=== PATIENT | male | born 1985 | race American Indian/Alaskan Native ===

== ENCOUNTER 2020-10-28 16:32 | Outpatient (REF) | payer OTHER, SELFPAY ==
[2020-10-28 17:37] LABS: Anion Gap 16 (12-20); Blood Urea Nitrogen 16 mg/dL (9-16); Calcium 8.9 mg/dL (8.4-10.2); Carbon Dioxide 23 mmol/L (22-29); Chloride 105 mmol/L (96-108); Estimated Glomerular Filt Rate > 60; Glucose Random 104 mg/dL (60-115); Potassium 4.4 mmol/l (3.3-5.1); Sodium 140 mmol/L (135-145)
== END 2020-10-28 16:33 | disposition home or self-care (01) ==
LOC: HO.LAB 16:32
PROVIDERS: PCP Internal Medicine; Visit Provider Internal Medicine
DX: R51.9 Headache, unspecified (principal)
CPT/HCPCS: 36415; 80048

== ENCOUNTER → 2020-11-07 10:58 | Outpatient (BNVA) | payer OTHER, SELFPAY | PROVIDERS: PCP Internal Medicine; Visit Provider Internal Medicine | DX: S46.012A Strain of muscle(s) and tendon(s) of the rotator cuff of left shoulder, initial encounter (principal); W01.0XXA Fall on same level from slipping, tripping and stumbling without subsequent striking against object, initial encounter | CPT/HCPCS: 99203 ==

== ENCOUNTER → 2020-11-12 11:38 | Outpatient (BNVA) | payer OTHER, SELFPAY | PROVIDERS: PCP Internal Medicine; Visit Provider Internal Medicine | DX: S46.012A Strain of muscle(s) and tendon(s) of the rotator cuff of left shoulder, initial encounter (principal); S50.01XA Contusion of right elbow, initial encounter; W01.0XXA Fall on same level from slipping, tripping and stumbling without subsequent striking against object, initial encounter; M70.812 Other soft tissue disorders related to use, overuse and pressure, left shoulder | CPT/HCPCS: 73080; 99214 ==

== ENCOUNTER → 2020-11-20 08:36 | Outpatient (BNVA) | payer SELFPAY | PROVIDERS: PCP Internal Medicine | DX: M79.12 Myalgia of auxiliary muscles, head and neck (principal); S16.1XXD Strain of muscle, fascia and tendon at neck level, subsequent encounter; X58.XXXD Exposure to other specified factors, subsequent encounter ==

== ENCOUNTER → 2020-11-22 11:36 | Outpatient (BNVA) | payer OTHER, SELFPAY | PROVIDERS: PCP Internal Medicine; Visit Provider Internal Medicine | DX: S46.002A Unspecified injury of muscle(s) and tendon(s) of the rotator cuff of left shoulder, initial encounter (principal); S50.01XA Contusion of right elbow, initial encounter; X58.XXXA Exposure to other specified factors, initial encounter | CPT/HCPCS: 99214 ==

== ENCOUNTER → 2020-11-29 11:44 | Outpatient (BNVA) | payer OTHER, SELFPAY | PROVIDERS: PCP Internal Medicine; Visit Provider Internal Medicine | DX: M25.812 Other specified joint disorders, left shoulder (principal); S53.401A Unspecified sprain of right elbow, initial encounter; W18.30XA Fall on same level, unspecified, initial encounter | CPT/HCPCS: 99213 ==

== ENCOUNTER 2020-12-30 09:00 | Outpatient (RCR) | payer OTHER, SELFPAY ==
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
== END 2021-01-20 13:46 | disposition other institution (70) ==
LOC: HO.PT 09:00
PROVIDERS: PCP Internal Medicine; Visit Provider Internal Medicine
DX: M70.31 Other bursitis of elbow, right elbow (principal)
CPT/HCPCS: 97014; 97033; 97110; 97140; 97162; 97530

== ENCOUNTER 2021-01-10 10:46 | Outpatient (REF) | payer OTHER, SELFPAY ==
[2021-01-10 11:21] LABS: MANUAL DIFF FLAG NO
[2021-01-10 11:27] LABS: Basophils Percent Auto 0.2 % (0-2); Eosinophils Absolute Auto 0.1 X10*3/uL (0.0-0.4); Hematocrit 47.7 % (42-52); Hemoglobin 15.9 g/dl (14.0-18.0); Imm Gran Abs Auto 0.06 X10*3/uL (0.00-0.03); Imm Gran Pct Auto 0.5 % (0.0-0.4); Lymphocytes Absolute Auto 3.2 X10*3/uL (1.2-4.9); Lymphocytes Percent Auto 28.7 % (20-40); Mean Corpuscular HGB Conc 33.3 g/dl (31.0-36.0); Mean Corpuscular Hemoglobin 29.5 pg (27.0-33.0); Mean Corpuscular Volume 88.5 fL (80-98); Mean Platelet Volume 9.8 fL (9.4-12.4); Monocytes Absolute Auto 0.6 X10*3/uL (0.1-1.2); Monocytes Percent Auto 5.3 % (2-11); Neutrophils Absolute Auto 7.1 X10*3/uL (2.0-8.3); Neutrophils Percent Auto 64.3 % (45-73); Platelet Count 323 X10*3/uL (160-400); Red Blood Count 5.39 X10*6/uL (4.60-5.80); Red Cell Distribution Width 12.9 % (11.0-16.0)
[2021-01-10 11:55] LABS: Alanine Aminotransferase 88 U/L (0-40); Albumin Level 4.4 g/dL (3.5-5.0); Alkaline Phosphatase 97 U/L (39-117); Anion Gap 12 (12-20); Aspartate Amino Transferase 44 U/L (5-37); Bilirubin Total 0.9 mg/dL (0.0-1.0); Blood Urea Nitrogen 15 mg/dL (9-16); Calcium 9.4 mg/dL (8.4-10.2); Carbon Dioxide 27 mmol/L (22-29); Chloride 103 mmol/L (96-108); Estimated Glomerular Filt Rate > 60; Glucose Fasting 89 mg/dL (60-99); Potassium 4.1 mmol/L (3.3-5.1); Sodium 138 mmol/L (135-145); Total Protein 7.7 g/dL (6.5-8.0)
== END 2021-01-10 10:47 | disposition home or self-care (01) ==
LOC: HO.LAB 10:46
PROVIDERS: PCP Internal Medicine; Visit Provider Internal Medicine
DX: Z00.00 Encounter for general adult medical examination without abnormal findings (principal); E11.9 Type 2 diabetes mellitus without complications
CPT/HCPCS: 36415; 80053; 85025

== ENCOUNTER 2021-01-16 07:08 | Outpatient (REF) | payer OTHER, SELFPAY ==
--- NOTE | ~2021-01-16 | CT_ITS ---
EXAMINATION: CT HEAD WITHOUT CONTRAST CLINICAL INFORMATION: Headache. COMPARISON: None TECHNIQUE: Contiguous axial imaging was performed from the skull base to vertex without intravenous administration of contrast. This CT examination was performed using dose optimization techniques as appropriate, variously including the following: *Automated exposure control *Adjustment of mA and/or kV according to patient size (this includes techniques or standardized protocols for targeted exams where dose is matched to indication/reason for exam; i.e. extremities or head) *Use of iterative reconstruction technique DLP: 906 mGy-cm FINDINGS: There is no evidence of acute intracranial hemorrhage or territorial infarction. No abnormal mass effect or midline shift is seen. Paredes to white matter differentiation is well preserved. No extra-axial fluid collections are identified. The ventricles are normal in size. There is no abnormal attenuation within the brain parenchyma. The osseous structures and soft tissues are normal. There is minimal mucoperiosteal thickening right maxillary sinus. The rest of the paranasal sinuses and mastoid air cells are well aerated and clear. CT/CT head/brain wo con IMPRESSION: No acute intracranial process seen. Mild inflammatory changes right maxillary sinus.
== END 2021-01-16 07:09 | disposition home or self-care (01) ==
LOC: HO.CT 07:08
PROVIDERS: PCP Internal Medicine; Visit Provider Internal Medicine
DX: R51.9 Headache, unspecified (principal)
CPT/HCPCS: 70450

== ENCOUNTER 2022-04-13 09:34 | Outpatient (REF) | payer OTHER, SELFPAY ==
--- NOTE | ~2022-04-13 | XR_ITS ---
EXAMINATION: XR LUMBOSACRAL SPINE CLINICAL INFORMATION: Low back pain. COMPARISON: None TECHNIQUE: Three views of the lumbosacral spine. FINDINGS: There is maintained lumbar lordosis. The vertebral heights, alignment and disc heights are normal. There is moderate ventral spondylosis lower dorsal and upper lumbar spine. No visible acute fracture, dislocation or subluxation seen. No bony erosive changes. SI joints are symmetrical and normal. The paravertebral soft tissues are normal. XR/XR lumbar spine 2-3V IMPRESSION: Degenerative moderate ventral spondylosis lower dorsal and upper lumbar spine. Otherwise, unremarkable lumbar spine exam.
[2022-04-13 09:44] LABS: MANUAL DIFF FLAG NO
[2022-04-13 10:40] LABS: Basophils Absolute Auto 0.1 X10*3/uL (0.0-0.2); Basophils Percent Auto 0.4 % (0-2); Eosinophils Absolute Auto 0.1 X10*3/uL (0.0-0.4); Eosinophils Percent Auto 0.9 % (0-4); Hematocrit 48.1 % (42.0-52.0); Hemoglobin 16.4 g/dl (14.0-18.0); Imm Gran Abs Auto 0.08 X10*3/uL (0.00-0.03); Imm Gran Pct Auto 0.7 % (0.0-0.4); Lymphocytes Absolute Auto 3.1 X10*3/uL (1.2-4.9); Lymphocytes Percent Auto 26.2 % (20-40); Mean Corpuscular HGB Conc 34.1 g/dl (31.0-36.0); Mean Corpuscular Hemoglobin 29.7 pg (27.0-33.0); Mean Platelet Volume 9.7 fL (9.4-12.4); Monocytes Absolute Auto 0.6 X10*3/uL (0.1-1.2); Monocytes Percent Auto 4.9 % (2-11); Neutrophils Absolute Auto 7.8 x10*3/uL (2.0-8.3); Neutrophils Percent Auto 66.9 % (45-73); Platelet Count 328 X10*3/uL (160-400); Red Blood Count 5.53 X10*6/uL (4.60-5.80); Red Cell Distribution Width 13.1 % (11.0-16.0); White Blood Count 11.7 X10*3/uL (4.8-10.8)
[2022-04-13 10:58] LABS: Alanine Aminotransferase 52 U/L (0-40); Albumin Level 4.4 g/dL (3.5-5.0); Alkaline Phosphatase 94 U/L (39-117); Anion Gap 13 (12-20); Aspartate Amino Transferase 31 U/L (5-37); Bilirubin Total 0.9 mg/dL (0.0-1.0); Blood Urea Nitrogen 16 mg/dL (9-16); Calcium 9.5 mg/dL (8.4-10.2); Carbon Dioxide 24 mmol/L (22-29); Chloride 103 mmol/L (96-108); Cholesterol 196 mg/dL; Estimated Glomerular Filt Rate > 60; Glucose Fasting 102 mg/dL (60-99); HDL Cholesterol 27 mg/dL; LDL Cholesterol Calculated 131 mg/dl; Potassium 4.2 mmol/L (3.3-5.1); Sodium 136 mmol/L (135-145); Total Protein 7.6 g/dL (6.5-8.0); Triglycerides 191 mg/dL
[2022-04-13 11:25] LABS: Thyroid Stimulating Hormone 1.38 uIU/mL (0.32-4.0)
== END 2022-04-13 09:35 | disposition home or self-care (01) ==
LOC: HO.XRAY 09:34
PROVIDERS: PCP Internal Medicine; Visit Provider Internal Medicine
DX: Z13.0 Encounter for screening for diseases of the blood and blood-forming organs and certain disorders involving the immune mechanism (principal); M54.9 Dorsalgia, unspecified; I10 Essential (primary) hypertension; E78.5 Hyperlipidemia, unspecified; E03.9 Hypothyroidism, unspecified
CPT/HCPCS: 36415; 72100; 80053; 80061; 84443; 85025

== ENCOUNTER 2023-04-14 09:14 | Outpatient (REF) | payer OTHER, MEDICAID, SELFPAY ==
--- NOTE | ~2023-04-14 | XR_ITS ---
EXAMINATION: XR HIP, RIGHT CLINICAL INFORMATION: Pain. COMPARISON: Radiographs dated 04/11/2007. TECHNIQUE: AP and frog-leg lateral views of the right hip. FINDINGS: Bony alignment and mineralization are normal. There is mild narrowing of the superior right acetabular joint space. The right femoral head appears smooth. There is no fracture or dislocation. Some bowing is suspected of the right femoral shaft, which is incompletely included in the [id number]. No focal soft tissue swelling, gas or foreign body is seen. XR/XR hip RT min 2V IMPRESSION: 1. There is mild osteoarthritic change of the right hip. 2. No fracture or dislocation is seen. 3. Bowing is suspected of the right femoral shaft, possibly congenital. This could be further evaluated with dedicated right femoral radiographs.
[2023-04-14 09:33] LABS: MANUAL DIFF FLAG NO
[2023-04-14 10:12] LABS: Basophils Percent Auto 0.3 % (0-2); Eosinophils Absolute Auto 0.1 X10*3/uL (0.0-0.4); Eosinophils Percent Auto 1.3 % (0-4); Hematocrit 45.7 % (42.0-52.0); Hemoglobin 15.2 g/dl (14.0-18.0); Imm Gran Abs Auto 0.06 X10*3/uL (0.00-0.03); Imm Gran Pct Auto 0.6 % (0.0-0.4); Lymphocytes Absolute Auto 2.8 X10*3/uL (1.2-4.9); Lymphocytes Percent Auto 29.6 % (20-40); Mean Corpuscular HGB Conc 33.3 g/dl (31.0-36.0); Mean Corpuscular Hemoglobin 29.2 pg (27.0-33.0); Mean Corpuscular Volume 87.9 fL (80.0-98.0); Mean Platelet Volume 9.7 fL (9.4-12.4); Monocytes Absolute Auto 0.6 X10*3/uL (0.1-1.2); Monocytes Percent Auto 6.6 % (2-11); Neutrophils Absolute Auto 5.8 x10*3/uL (2.0-8.3); Neutrophils Percent Auto 61.6 % (45-73); Platelet Count 328 X10*3/uL (160-400); Red Cell Distribution Width 13.4 % (11.0-16.0); White Blood Count 9.5 X10*3/uL (4.8-10.8)
[2023-04-14 11:34] LABS: Alanine Aminotransferase 60 U/L (0-40); Albumin Level 4.1 g/dL (3.5-5.0); Alkaline Phosphatase 95 U/L (39-117); Anion Gap 15 (12-20); Aspartate Amino Transferase 46 U/L (5-37); Bilirubin Total 0.7 mg/dL (0.0-1.0); Blood Urea Nitrogen 16 mg/dL (9-16); Calcium 9.6 mg/dL (8.4-10.2); Carbon Dioxide 22 mmol/L (22-29); Chloride 106 mmol/L (96-108); Cholesterol 175 mg/dL; Estimated Glomerular Filt Rate > 60; Glucose Fasting 105 mg/dL (60-99); HDL Cholesterol 26 mg/dL; LDL Cholesterol Calculated 126 mg/dl; Potassium 3.9 mmol/L (3.3-5.1); Sodium 139 mmol/L (135-145); Triglycerides 115 mg/dL
== END 2023-04-14 09:15 | disposition home or self-care (01) ==
LOC: HO.LAB 09:14
PROVIDERS: PCP Internal Medicine; Visit Provider Internal Medicine
DX: M25.551 Pain in right hip (principal); N28.9 Disorder of kidney and ureter, unspecified; D64.9 Anemia, unspecified; E78.5 Hyperlipidemia, unspecified
CPT/HCPCS: 36415; 73502; 80053; 80061; 85025

== ENCOUNTER 2023-06-18 08:17 | Outpatient (AMB) | payer OTHER, SELFPAY ==
[2023-06-18 08:27] VITALS: BP 128/78; PULSE 80; O2SAT 98; BMI 47.9
--- NOTE | 2023-06-18 08:27 | A.OFFPC_ITS ---
Vital Signs 06/18/23 08:27 Height 5 ft 8 in Weight 315 lb BMI 47.9 BP 128/78 Blood Pressure Location Lt brachial Position Sitting Pulse 80 Pulse Source Pulse Oximeter Pulse Oximetry (%) 98 Oxygen Delivery Method Room Air Intake Visit Reasons: Fall/Left Leg Injury Allergies No Known Allergies Allergy (Verified 06/18/23 08:28) Medication List - Last Reconciled 06/18/23 by Alen Angelo MD allopurinol 300 mg PO DAILY hydrochlorothiazide 25 mg PO DAILY ibuprofen 600 mg PO TID metoprolol tartrate 50 mg PO BID 90 days selenium sulfide 2.5% 1 appl topical DAILY 7 days Tobacco use date assessed: 04/14/23 Dental Screening Dental Screen Date: 06/18/23 Did you have a dental visit in the last 12 months?: Yes Did you have a dental problem in the last 6 months where you did not have access to dental care?: No Was dental information given to patient?: Patient has dentist HPI Fall/Left Leg Injury HPI Details injured left hamstring 5 days ago PFSH Medical History Hypertension Morbid obesity Surgical History Deficient knowledge of leg surgery History of elbow surgery History of hand surgery Family History Father Gout Diabetes Hypertension Mother Myocardial infarction Diabetes Hypertension CVD (cardiovascular disease) Mental health disorder Brother No problems noted. Sister No problems noted. Daughter No problems noted. Social History Housing: House Alcohol intake: current Alcohol intake frequency: a few times a month Patient Tobacco Use Status: Never used Tobacco e-Cigarette/Vaping Use: Never Used Second Hand Smoke Exposure: No service: No Current occupational status: employed Cognitive needs: No Hearing needs: No Vision needs: No Questionnaire PHQ-9 Over the last 2 weeks, how often have you been bothered by any of the following problems? 1. Little interest or pleasure in doing things: not at all 2. Feeling down, depressed, or hopeless: not at all 3. Trouble falling or staying asleep, or sleeping too much: not at all 4. Feeling tired or having little energy: not at all 5. Poor appetite or overeating: not at all 6. Feeling bad about yourself - or that you are a failure or have let yourself or your family down: not at all 7. Trouble concentrating on things, such as reading the newspaper or watching television: not at all 8. Moving or speaking so slowly that other people could have noticed. Or the opposite - being so fidgety or restless that you have been moving around a lot more than usual: not at all 9. Thoughts that you would be better off or of hurting yourself in some way: not at all Total score: 0 Depression Screening Interpretation: Negative 21634 - PHQ-9 Billing: Yes Source: Developed by Drs. Kristofer Bryant, Shanda Palacio, Antonio Escalante and colleagues, with an educational serafin from [employer]. Thrive Questionnaire Date Thrive assessed: 04/14/23 Currently or been in a relationship where the following occur: no concerns reported AUDIT C Alcohol Use Questionnaire (AUDIT-C) 1. How often do you have a drink containing alcohol?: Never Total Score: 0 Score Reviewed/Action Taken: Yes DEVORAH-7 AMB Questionnaire DEVORAH-7 Date DEVORAH - 7 assessed: 04/14/23 Source: Developed by Drs. Kristofer Bryant, Shanda Palacio, Antonio Escalante and colleagues, with an educational serafin from [employer]. Review of Systems Const Denies chills, Denies headache(s) and Denies weight loss ENT Denies headache(s) Card Denies chest pain, Denies syncope, Denies irregular heart rhythm and Denies dyspnea Resp Denies chest congestion, Denies cough and Denies dyspnea GI Denies abdominal pain, Denies change in stool character, Denies nausea and Denies vomiting Musc Denies deformity and Denies joint swelling Neuro Denies syncope and Denies headache(s) Physical exam (Primary Care) Vital Signs: Last Vital Signs Pulse 80 06/18/23 08:27 BP 128/78 06/18/23 08:27 Pulse Ox 98 06/18/23 08:27 Oxygen Delivery Method Room Air 06/18/23 08:27 BMI result Body Mass Index 47.9 morbid obesity BMI Assessment/Plan discussion: High BMI High, discussed plan: lifestyle, weight reduction, dietary and physical activity Tobacco/Smoking Status: Tobacco use Status Tobacco use date assessed 04/14/23 06/18/23 08:32 Patient Tobacco Use Status Never used Tobacco 06/18/23 08:32 e-Cigarette/Vaping Use Never Used 06/18/23 08:32 PHQ-9: PHQ-9 Score PHQ-9: Total score 0 06/18/23 08:32 Depression Screening Interpretation: Negative Thrive Assessment: Date of Thrive Assessment Date Thrive assessed 04/14/23 06/18/23 08:32 Currently or been in a relationship where the following occur: no concerns reported Const General: cooperative, healthy appearing and no acute distress Orientation/consciousness: oriented to person, oriented to place and oriented to time HENMT Head: Yes normal to inspection, Yes normocephalic and Yes atraumatic Mouth: Normal oral and palatal mucosa present and tongue normal Throat: Yes posterior oropharynx normal and Yes uvula midline Eyes General: appearance normal, both eyes and all related structures Neck Neck: Yes normal visual inspection, Yes full ROM and Yes no lymphadenopathy Thyroid: Thyroid normal Carotids: normal carotid upstroke Chest Chest palpation & inspection: normal inspection of the chest Resp Effort & Inspection: normal respiratory effort and able to speak in complete sentences Auscultation: clear to auscultation bilaterally Cardio Jugular venous distension: no JVD Palpation: normal PMI Rate: regular rate Rhythm: regular rhythm Heart sounds: S1 normal heart sound present and S2 normal heart sound present GI Inspection: Yes normal to inspection Palpation (GI): Soft to palpation and No hepatosplenomegaly present Auscultation: normal bowel sounds General: Yes no CVA tenderness Back/Spine/Pelvis Back: no CVA tenderness Skin General skin exam: no rashes or lesions noted Neuro General: oriented to person, oriented to place and oriented to time Extrem General: Yes normal to inspection and Yes full ROM Assessment and Plan Assessment & Plan (1) Left hamstring injury: Code(s): S76.302A - Unspecified injury of muscle, fascia and tendon of the posterior muscle group at thigh level, left thigh, initial encounter Plan: ice and nsaids Orders: Orders PT Evaluation and Treatment Today M25.551 - Pain in right hip Medications: New ibuprofen 600 mg PO TID 60 tabs 2RF Coding Level of Care Code Est Pt Level 3 (87718) Diagnoses Left hamstring injury S76.302A
== END 2023-06-18 08:43 | disposition home or self-care (01) ==
PROVIDERS: PCP Internal Medicine; Visit Provider Internal Medicine
DX: S76.302A Unspecified injury of muscle, fascia and tendon of the posterior muscle group at thigh level, left thigh, initial encounter (principal)
CPT/HCPCS: 99213

== ENCOUNTER 2023-08-23 10:23 | Outpatient (AMB) | payer OTHER, SELFPAY ==
[2023-08-23 10:29] VITALS: BP 160/98; PULSE 82; O2SAT 98; BMI 48.5
--- NOTE | 2023-08-23 10:29 | A.OFFPC_ITS ---
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 Accompanied by: Self / Same As Patient Allergies No Known Allergies Allergy (Verified 08/23/23 10:30) Medication List - Last Reconciled 08/23/23 by Alen Angelo MD allopurinol 300 mg PO DAILY hydrochlorothiazide 25 mg PO DAILY ibuprofen 600 mg PO TID metoprolol tartrate 50 mg PO BID 90 days selenium sulfide 2.5% 1 appl topical DAILY 7 days Tobacco use date assessed: 04/14/23 Dental Screening Dental Screen Date: 08/23/23 Did you have a dental visit in the last 12 months?: Yes Did you have a dental problem in the last 6 months where you did not have access to dental care?: No Was dental information given to patient?: Patient has dentist HPI 3 Mth f/u ( Bp/ Medication) HPI Details HTN on Rx; BP fine at home PFSH Medical History Morbid obesity Hypertension Surgical History History of hand surgery History of elbow surgery Deficient knowledge of leg surgery Family History Father Gout Diabetes Hypertension Mother Myocardial infarction Diabetes Hypertension CVD (cardiovascular disease) Mental health disorder Brother No problems noted. Sister No problems noted. Daughter No problems noted. Social History Housing: House Alcohol intake: current Alcohol intake frequency: a few times a month Patient Tobacco Use Status: Never used Tobacco e-Cigarette/Vaping Use: Never Used Second Hand Smoke Exposure: No service: No Current occupational status: employed Cognitive needs: No Hearing needs: No Vision needs: No Questionnaire PHQ-9 Over the last 2 weeks, how often have you been bothered by any of the following problems? 1. Little interest or pleasure in doing things: not at all 2. Feeling down, depressed, or hopeless: not at all 3. Trouble falling or staying asleep, or sleeping too much: not at all 4. Feeling tired or having little energy: not at all 5. Poor appetite or overeating: not at all 6. Feeling bad about yourself - or that you are a failure or have let yourself or your family down: not at all 7. Trouble concentrating on things, such as reading the newspaper or watching television: not at all 8. Moving or speaking so slowly that other people could have noticed. Or the opposite - being so fidgety or restless that you have been moving around a lot more than usual: not at all 9. Thoughts that you would be better off or of hurting yourself in some way: not at all Total score: 0 Depression Screening Interpretation: Negative Depression Screening Done: Yes 67116 - PHQ-9 Billing: Yes Source: Developed by Drs. Kristofer Bryant, Shanda Palacio, Antonio Escalante and colleagues, with an educational serafin from [employer]. Thrive Questionnaire Date Thrive assessed: 04/14/23 AUDIT C Alcohol Use Questionnaire (AUDIT-C) 1. How often do you have a drink containing alcohol?: Never Total Score: 0 Score Reviewed/Action Taken: Yes DEVORAH-7 AMB Questionnaire DEVORAH-7 Date DEVORAH - 7 assessed: 04/14/23 Source: Developed by Drs. Kristofer Bryant, Shanda Palacio, Antonio Escalante and colleagues, with an educational serafin from [employer]. Review of Systems Const Denies chills, Denies headache(s) and Denies weight loss ENT Denies headache(s) Card Denies chest pain, Denies syncope, Denies irregular heart rhythm and Denies dyspnea Resp Denies chest congestion, Denies cough and Denies dyspnea GI Denies abdominal pain, Denies change in stool character, Denies nausea and Denies vomiting Musc Denies deformity and Denies joint swelling Neuro Denies syncope and Denies headache(s) Physical exam (Primary Care) Vital Signs: Last Vital Signs Pulse 82 08/23/23 10:29 BP 160/98 H 08/23/23 10:29 Pulse Ox 98 08/23/23 10:29 Oxygen Delivery Method Room Air 08/23/23 10:29 BMI result Body Mass Index 48.5 Tobacco/Smoking Status: Tobacco use Status Tobacco use date assessed 04/14/23 08/23/23 10:30 Patient Tobacco Use Status Never used Tobacco 08/23/23 10:30 e-Cigarette/Vaping Use Never Used 08/23/23 10:30 PHQ-9: PHQ-9 Score PHQ-9: Total score 0 08/23/23 10:53 Depression Screening Interpretation: Negative Thrive Assessment: Date of Thrive Assessment Date Thrive assessed 04/14/23 08/23/23 10:30 Const General: cooperative, comfortable, no acute distress and alert Neck Neck: Yes no lymphadenopathy Thyroid: Thyroid normal Resp Effort & Inspection: normal respiratory effort Auscultation: clear to auscultation bilaterally Percussion: percussion normal Cardio Jugular venous distension: no JVD Palpation: normal PMI Rate: regular rate Rhythm: regular rhythm Heart sounds: S1 normal heart sound present and S2 normal heart sound present GI Inspection: Yes normal to inspection Palpation (GI): No hepatosplenomegaly present Skin General skin exam: no rashes or lesions noted Extrem General: Yes no clubbing, cyanosis or edema Assessment and Plan Assessment & Plan (1) Hypertension: Code(s): I10 - Essential (primary) hypertension Plan: stable; same rx Coding Level of Care Code Est Pt Level 3 (10916) Diagnoses Hypertension I10
== END 2023-08-23 11:03 | disposition home or self-care (01) ==
PROVIDERS: PCP Internal Medicine; Visit Provider Internal Medicine
DX: I10 Essential (primary) hypertension (principal)
CPT/HCPCS: 99213

== ENCOUNTER 2023-11-30 09:58 | Outpatient (AMB) | payer OTHER, SELFPAY ==
[2023-11-30 10:02] VITALS: BP 160/100; PULSE 87; O2SAT 98; BMI 49.6
--- NOTE | 2023-11-30 10:02 | MHC.PC.OV ---
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 Accompanied by: Self / Same As Patient Allergies No Known Allergies Allergy (Verified 11/30/23 10:03) Medication List - Last Reconciled 11/30/23 by Alen Angelo MD allopurinol 300 mg PO DAILY hydrochlorothiazide 25 mg PO DAILY ibuprofen 600 mg PO TID metoprolol tartrate 50 mg PO BID 90 days selenium sulfide 2.5% 1 appl topical DAILY 7 days Tobacco use date assessed: 11/30/23 Dental Screening Dental Screen Date: 11/30/23 Did you have a dental visit in the last 12 months?: Yes Did you have a dental problem in the last 6 months where you did not have access to dental care?: No Was dental information given to patient?: Patient has dentist HPI 3 month f/u HPI Details HTN gout and hip pain; did not take rx today; right hip continues to bother him; OA and a bowed femur noted PFSH Medical History Morbid obesity Hypertension Surgical History History of hand surgery History of elbow surgery Deficient knowledge of leg surgery Family History Father Gout Diabetes Hypertension Mother Myocardial infarction Diabetes Hypertension CVD (cardiovascular disease) Mental health disorder Brother No problems noted. Sister No problems noted. Daughter No problems noted. Social History Housing: House Alcohol intake: current Alcohol intake frequency: a few times a month Patient Tobacco Use Status: Never used Tobacco e-Cigarette/Vaping Use: Never Used Second Hand Smoke Exposure: No service: No Current occupational status: employed Cognitive needs: No Hearing needs: No Vision needs: No Questionnaire Thrive Questionnaire Date Thrive assessed: 04/28/23 I am a: Patient What is your living situation today?: I have a steady place to live Within the past 12 months, did the food you bought not last and you didn't have the money to get more?: Never true Within the past 12 months, did you worry whether your food would run out before you got money to buy more?: Never true Do you have trouble paying for medicines?: No Do you have trouble getting transportation to medical appointments?: No Do you have trouble paying your heating and electricity bill?: No Do you have trouble taking care of your child, family member or friend?: No Do you have trouble with day-to-day activities such as bathing, preparing meals, shopping, managing finances, etc.?: No Are you currently unemployed and looking for a job?: No Are you interested in more education?: No THRIVE Score: 0 AUDIT C Alcohol Use Questionnaire (AUDIT-C) 1. How often do you have a drink containing alcohol?: Never Total Score: 0 Score Reviewed/Action Taken: Yes DEVORAH-7 AMB Questionnaire DEVORAH-7 Date DEVORAH - 7 assessed: 11/30/23 Feeling nervous, anxious, or on edge: 0 = Not at all Not being able to stop or control worryin = Not at all Worrying too much about different things: 0 = Not at all Trouble relaxin = Not at all Being so restless that it is hard to sit still: 0 = Not at all Becoming easily annoyed or irritable: 0 = Not at all Feeling afraid as if something awful might happen: 0 = Not at all Total DEVORAH-7 score (0-4 normal; 5-9 mild; 10-14 moderate; 15-21 severe): 0 Source: Developed by Drs. Kristofer Bryant, Shanda Palacio, Antonio Escalante and colleagues, with an educational serafin from [employer]. Review of Systems Const Denies chills, Denies headache(s) and Denies weight loss ENT Denies headache(s) Card Denies chest pain, Denies syncope, Denies irregular heart rhythm and Denies dyspnea Resp Denies chest congestion, Denies cough and Denies dyspnea GI Denies abdominal pain, Denies change in stool character, Denies nausea and Denies vomiting Musc Denies deformity and Denies joint swelling Neuro Denies syncope and Denies headache(s) Physical exam (Primary Care) Vital Signs: Last Vital Signs Pulse 87 11/30/23 10:02 BP 160/100 H 11/30/23 10:02 Pulse Ox 98 11/30/23 10:02 Oxygen Delivery Method Room Air 11/30/23 10:02 BMI result Body Mass Index 49.6 Tobacco/Smoking Status: Tobacco use Status Tobacco use date assessed 11/30/23 11/30/23 10:04 Patient Tobacco Use Status Never used Tobacco 11/30/23 10:03 e-Cigarette/Vaping Use Never Used 11/30/23 10:03 Thrive Assessment: Date of Thrive Assessment Date Thrive assessed 04/28/23 11/30/23 10:04 Const General: cooperative, comfortable, no acute distress and alert Neck Neck: Yes no lymphadenopathy Thyroid: Thyroid normal Resp Effort & Inspection: normal respiratory effort Auscultation: clear to auscultation bilaterally Percussion: percussion normal Cardio Jugular venous distension: no JVD Palpation: normal PMI Rate: regular rate Rhythm: regular rhythm Heart sounds: S1 normal heart sound present and S2 normal heart sound present GI Inspection: Yes normal to inspection Palpation (GI): No hepatosplenomegaly present Skin General skin exam: no rashes or lesions noted Extrem General: Yes no clubbing, cyanosis or edema Assessment and Plan Assessment & Plan (1) Gout: Code(s): M10.9 - Gout, unspecified Plan: stable (2) Hypertension: Code(s): I10 - Essential (primary) hypertension Plan: stable; same rx; do labs (3) Hip pain: Code(s): M25.559 - Pain in unspecified hip Plan: ortho ref Orders: Orders Uric Acid Today M10.9 - Gout, unspecified Lipid Panel Today E78.5 - Hyperlipidemia, unspecified Complete Blood Count Auto Diff Today D64.9 - Anemia, unspecified Comprehensive [place]. Panel Fast Today N28.9 - Disorder of kidney and ureter, unspecified Referrals Orthopedics Referral M25.559 - Pain in unspecified hip Coding Level of Care Code Est Pt Level 4 (51922) Diagnoses Gout M10.9 Hypertension I10 Hip pain M25.559
== END 2023-11-30 10:18 | disposition home or self-care (01) ==
PROVIDERS: PCP Internal Medicine; Visit Provider Internal Medicine
DX: M10.9 Gout, unspecified (principal); I10 Essential (primary) hypertension; M25.559 Pain in unspecified hip
CPT/HCPCS: 99214

== ENCOUNTER 2023-12-13 09:11 | Outpatient (REF) | payer OTHER, SELFPAY ==
[2023-12-13 09:23] LABS: MANUAL DIFF FLAG NO
[2023-12-13 10:15] LABS: Basophils Percent Auto 0.2 % (0-2); Eosinophils Absolute Auto 0.2 X10*3/uL (0.0-0.4); Eosinophils Percent Auto 1.4 % (0-4); Hematocrit 47.4 % (42.0-52.0); Hemoglobin 16.2 g/dl (14.0-18.0); Imm Gran Abs Auto 0.06 X10*3/uL (0.00-0.03); Imm Gran Pct Auto 0.6 % (0.0-0.4); Lymphocytes Absolute Auto 3.2 X10*3/uL (1.2-4.9); Lymphocytes Percent Auto 29.4 % (20-40); Mean Corpuscular HGB Conc 34.2 g/dl (31.0-36.0); Mean Corpuscular Hemoglobin 29.6 pg (27.0-33.0); Mean Corpuscular Volume 86.7 fL (80.0-98.0); Mean Platelet Volume 9.6 fL (9.4-12.4); Monocytes Absolute Auto 0.6 X10*3/uL (0.1-1.2); Monocytes Percent Auto 5.2 % (2-11); Neutrophils Absolute Auto 6.8 x10*3/uL (2.0-8.3); Neutrophils Percent Auto 63.2 % (45-73); Platelet Count 328 X10*3/uL (160-400); Red Blood Count 5.47 X10*6/uL (4.60-5.80); White Blood Count 10.8 X10*3/uL (4.8-10.8)
[2023-12-13 10:53] LABS: Alanine Aminotransferase 53 U/L (0-40); Albumin Level 4.1 g/dL (3.5-5.0); Alkaline Phosphatase 104 U/L (39-117); Anion Gap 12 (12-20); Aspartate Amino Transferase 33 U/L (5-37); Bilirubin Total 0.6 mg/dL (0.0-1.0); Blood Urea Nitrogen 13 mg/dL (9-16); Calcium 9.4 mg/dL (8.4-10.2); Carbon Dioxide 25 mmol/L (22-29); Chloride 105 mmol/L (96-108); Cholesterol 183 mg/dL (<200); Estimated Glomerular Filt Rate > 60; Glucose Fasting 120 mg/dL (60-99); HDL Cholesterol 26 mg/dL (>40); LDL Cholesterol Calculated 123 mg/dL (<100); Sodium 138 mmol/L (135-145); Total Protein 7.8 g/dL (6.5-8.0); Triglycerides 171 mg/dL (<150); Uric Acid 6.5 mg/dL (3.4-7.0)
== END 2023-12-13 09:12 | disposition home or self-care (01) ==
LOC: HO.LAB 09:11
PROVIDERS: PCP Internal Medicine; Visit Provider Internal Medicine
DX: M10.9 Gout, unspecified (principal); E78.5 Hyperlipidemia, unspecified; D64.9 Anemia, unspecified; N28.9 Disorder of kidney and ureter, unspecified
CPT/HCPCS: 36415; 80053; 80061; 84550; 85025

== ENCOUNTER 2023-12-16 08:37 | Outpatient (REF) | payer OTHER, SELFPAY ==
--- NOTE | ~2023-12-16 | XR_ITS ---
EXAMINATION: XR PELVIS CLINICAL INFORMATION: Pain in unspecified hip. COMPARISON: 04/14/2023. TECHNIQUE: 2 AP views of the pelvis. Visualization limited due to body habitus. FINDINGS: The sacroiliac joints are symmetric. Advanced degenerative changes in the right hip with superior joint space narrowing as well as acetabular and femoral hypertrophic change. Previously questioned possible bowing of the imaged proximal femoral shaft redemonstrated. Dedicated views of the femur could be considered for further evaluation. Mild superior joint space narrowing on single AP view of the left hip. Focal lucency redemonstrated in the superolateral aspect of the left acetabular region. Surgical clips overlie the scrotal region. XR/XR pelvis 1-2V IMPRESSION: 1. Advanced degenerative changes in the right hip. 2. Previously questioned possible bowing of the imaged proximal femoral shaft redemonstrated. Dedicated views of the femur could be considered for further evaluation. 3. Mild degenerative changes in the left hip. 4. Limited visualization due to body habitus. CT scan could be considered for further evaluation if there is clinical concern for fracture or other underlying pathology. This study was presented today December 22, 2023 for interpretation. Prompt priority results supplied at this time to the referring provider as requested by the provider.
== END 2023-12-16 08:38 | disposition home or self-care (01) ==
LOC: HO.HOSX 08:37
PROVIDERS: Visit Provider Orthopaedic Surgery
DX: M16.11 Unilateral primary osteoarthritis, right hip (principal); E66.01 Morbid (severe) obesity due to excess calories
CPT/HCPCS: 72170

== ENCOUNTER 2023-12-16 10:59 | Outpatient (AMB) | payer OTHER, SELFPAY ==
--- NOTE | 2023-12-16 10:59 | A.OFFVIS_ITS ---
Intake Vital Signs 12/16/23 11:09 Height 5 ft 8 in Weight 326 lb BMI 49.6 Intake Visit Reasons: New Pt - Right Hip Pain - [place] [facility] [place] Note: Alfonso is a 38 year old male who presents today as a new patient with complaints of right hip pain. Hx of gout. Patient reports that he has had pain in the right hip for about a year now, no injury. His pain is felt, in the lateral aspect of the hip. He finds that his pain is worse with walking and sleeping. He takes ibuprofen for his pain which only offers temporary relief. Allergies No Known Allergies Allergy (Verified 11/30/23 10:03) HPI New Pt - Right Hip Pain - XR @ [facility] [place] HPI Details Alfonso is a 38 year old man who presents to discuss his right hip pain. He complains of pain primarily with walking or prolonged laying, such as when sleeping. His pain is localized to the lateral aspect of his hip, and has been present for ~1 year now. He denies any injury, and has right hip OA seen on X-rays. He denies any prior treatment, and finds some relief from Ibuprofen. He has a hx of Gout but says this is currently stable. [facility] Medical History Morbid obesity Hypertension Surgical History History of hand surgery History of elbow surgery Deficient knowledge of leg surgery Family History Father Gout Diabetes Hypertension Mother Myocardial infarction Diabetes Hypertension CVD (cardiovascular disease) Mental health disorder Brother No problems noted. Sister No problems noted. Daughter No problems noted. 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 Resp Other: No audible wheezing Effort & Inspection: normal respiratory effort and able to speak in complete sentences Cardio Other: Radial pulse palpable with no rythmic abnormalities Jugular venous distension: no JVD Back/Spine/Pelvis Cervical Spine: normal cervical lordosis Skin General skin exam: turgor normal Rashes: no rashes Neuro General: patient oriented x3 Extrem Other: mild gait antalgia limited IR bilaterally but + impingement on the right. + [facility] Appearance: grossly normal Mental Status: mental status grossly normal Speech and movement: Normal speech and movement present Affect: normal affect Attitude: cooperative Results Reviewed Results Reviewed: I personally reviewed relevant radiographs. 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 Has seen Bariatrics and is considering surgery. I recommend weight loss as he is too young for arthroplasty. (2) Arthritis of right hip: Code(s): M16.11 - Unilateral primary osteoarthritis, right hip Plan: RIght hip OA in a 38 yo M. Weight loss, NSAIDs and PT. Discussed surgery and the current contra-indications are his age. Will see me in one year for repeat radiographs. Plan Prepared for Trey Singh MD by Duncan Lacey, medical support assistant, on 12/16/23 at 11:10 AM, EST. Orders: Orders XR pelvis 1-2V Today M25.559 - Pain in unspecified hip PT Evaluation and Treatment Today E66.01 - Morbid (severe) obesity due to excess calories, M16.11 - Unilateral primary osteoarthritis, right hip Coding Level of Care Code New Pt Level 4 (26418) Diagnoses Morbid obesity E66.01 Arthritis of right hip M16.11
[2023-12-16 11:09] VITALS: BMI 49.6
== END 2023-12-16 11:29 | disposition home or self-care (01) ==
PROVIDERS: PCP Internal Medicine; Visit Provider Orthopaedic Surgery
DX: M16.11 Unilateral primary osteoarthritis, right hip (principal); E66.01 Morbid (severe) obesity due to excess calories
CPT/HCPCS: 99203

== ENCOUNTER → 2024-01-10 14:04 | Outpatient (BNVA) | payer SELFPAY | PROVIDERS: PCP Internal Medicine; Visit Provider Physician Assistant Medical | DX: Z02.79 Encounter for issue of other medical certificate (principal) ==

== ENCOUNTER → 2024-01-19 08:58 | Outpatient (REF) | payer OTHER, SELFPAY | LOC: HO.SL 08:58 | PROVIDERS: PCP Internal Medicine; Visit Provider Internal Medicine | DX: R06.83 Snoring (principal); E66.01 Morbid (severe) obesity due to excess calories | CPT/HCPCS: 95806 ==

== ENCOUNTER → 2024-01-19 09:17 | Outpatient (BNV) | payer OTHER, SELFPAY | PROVIDERS: PCP Internal Medicine; Visit Provider Internal Medicine | DX: R06.83 Snoring (principal) | CPT/HCPCS: 95806 ==

== ENCOUNTER 2024-06-22 10:41 | Outpatient (AMB) | payer OTHER, SELFPAY ==
--- NOTE | 2024-06-22 10:44 | MHC.PC.OV ---
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 Accompanied by: Self / Same As Patient Allergies No Known Allergies Allergy (Verified 06/22/24 10:46) Medication List - Last Reconciled 06/22/24 by Alen Angelo MD allopurinol 300 mg PO DAILY hydrochlorothiazide 25 mg PO DAILY ibuprofen 600 mg PO TID metoprolol tartrate 50 mg PO BID 90 days selenium sulfide 2.5% 1 appl topical DAILY 7 days Tobacco use date assessed: 11/30/23 Dental Screening Dental Screen Date: 11/30/23 HPI BP Follow Up HPI Details HTN on Rx; doing well and compliant [facility] Medical History Morbid obesity Hypertension Surgical History History of hand surgery History of elbow surgery Deficient knowledge of leg surgery Family History Father Gout Diabetes Hypertension Mother Myocardial infarction Diabetes Hypertension CVD (cardiovascular disease) Mental health disorder Brother No problems noted. Sister No problems noted. Daughter No problems noted. 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 1. Little interest or pleasure in doing things: not at all 2. Feeling down, depressed, or hopeless: not at all 3. Trouble falling or staying asleep, or sleeping too much: not at all 4. Feeling tired or having little energy: not at all 5. Poor appetite or overeating: not at all 6. Feeling bad about yourself - or that you are a failure or have let yourself or your family down: not at all 7. Trouble concentrating on things, such as reading the newspaper or watching television: not at all 8. Moving or speaking so slowly that other people could have noticed. Or the opposite - being so fidgety or restless that you have been moving around a lot more than usual: not at all 9. Thoughts that you would be better off or of hurting yourself in some way: not at all Total score: 0 Depression Screening Interpretation: Negative Depression Screening Done: Yes 25528 - PHQ-9 Billing: Yes Source: Developed by Drs. Kristofer Bryant, Shanda Palacio, Antonio Escalante and colleagues, with an educational serafin from [employer]. Thrive Questionnaire Date Thrive assessed: 06/22/24 I am a: Patient What is your living situation today?: I have a steady place to live Within the past 12 months, did the food you bought not last and you didn't have the money to get more?: Never true Within the past 12 months, did you worry whether your food would run out before you got money to buy more?: Never true Do you have trouble paying for medicines?: No Do you have trouble getting transportation to medical appointments?: No Do you have trouble paying your heating and electricity bill?: No Do you have trouble taking care of your child, family member or friend?: No Do you have trouble with day-to-day activities such as bathing, preparing meals, shopping, managing finances, etc.?: No Are you currently unemployed and looking for a job?: No Are you interested in more education?: No THRIVE Score: 0 AUDIT C Alcohol Use Questionnaire (AUDIT-C) 1. How often do you have a drink containing alcohol?: Never Total Score: 0 Score Reviewed/Action Taken: Yes DEVORAH-7 AMB Questionnaire DEVORAH-7 Date DEVORAH - 7 assessed: 11/30/23 Source: Developed by Drs. Kristofer Bryant, Shanda Palacio, Antonio Escalante and colleagues, with an educational serafin from [employer]. Review of Systems Const Denies chills, Denies headache(s) and Denies weight loss ENT Denies headache(s) Card Denies chest pain, Denies syncope, Denies irregular heart rhythm and Denies dyspnea Resp Denies chest congestion, Denies cough and Denies dyspnea GI Denies abdominal pain, Denies change in stool character, Denies nausea and Denies vomiting Musc Denies deformity and Denies joint swelling Neuro Denies syncope and Denies headache(s) Physical exam (Primary Care) Vital Signs: Last Vital Signs Pulse 104 H 06/22/24 10:45 BP 160/98 H 06/22/24 10:45 Pulse Ox 97 06/22/24 10:45 Oxygen Delivery Method Room Air 06/22/24 10:45 BMI result Body Mass Index 48.7 Tobacco/Smoking Status: Tobacco use Status Tobacco use date assessed 11/30/23 06/22/24 10:49 Patient Tobacco Use Status Never used Tobacco 06/22/24 10:49 Tobacco use type Cigarette 06/22/24 10:49 e-Cigarette/Vaping Use Never Used 06/22/24 10:49 PHQ-9: PHQ-9 Score PHQ-9: Total score 0 06/22/24 10:49 Depression Screening Interpretation: Negative Thrive Assessment: Date of Thrive Assessment Date Thrive assessed 06/22/24 06/22/24 10:49 Const General: cooperative, comfortable, no acute distress and alert Neck Neck: Yes no lymphadenopathy Thyroid: Thyroid normal Resp Effort & Inspection: normal respiratory effort Auscultation: clear to auscultation bilaterally Percussion: percussion normal Cardio Jugular venous distension: no JVD Palpation: normal PMI Rate: regular rate Rhythm: regular rhythm Heart sounds: S1 normal heart sound present and S2 normal heart sound present GI Inspection: Yes normal to inspection Palpation (GI): No hepatosplenomegaly present Skin General skin exam: no rashes or lesions noted Extrem General: Yes no clubbing, cyanosis or edema Assessment and Plan Assessment & Plan (1) Hypertension: Code(s): I10 - Essential (primary) hypertension Plan: stable; same rx Coding Level of Care Code Est Pt Level 3 (50551) Diagnoses Hypertension I10
[2024-06-22 10:45] VITALS: BP 160/98; PULSE 104; O2SAT 97; BMI 48.7
== END 2024-06-22 11:07 | disposition home or self-care (01) ==
PROVIDERS: PCP Internal Medicine; Visit Provider Internal Medicine
DX: I10 Essential (primary) hypertension (principal)
CPT/HCPCS: 99213

== ENCOUNTER → 2024-08-11 09:25 | Outpatient (BNVA) | payer SELFPAY | PROVIDERS: PCP Internal Medicine; Visit Provider Physician Assistant | DX: Z02.79 Encounter for issue of other medical certificate (principal) ==

== ENCOUNTER 2024-09-11 10:37 | Outpatient (AMB) | payer OTHER, SELFPAY ==
[2024-09-11 10:41] VITALS: BP 132/88; PULSE 83; O2SAT 98; BMI 49.0
--- NOTE | 2024-09-11 10:41 | A.OFFPC_ITS ---
Vital Signs 09/11/24 10:41 Height 5 ft 8 in Weight 322 lb BMI 49.0 BP 132/88 Blood Pressure Location Lt brachial Position Sitting Pulse 83 Pulse Source Pulse Oximeter Pulse Oximetry (%) 98 Oxygen Delivery Method Room Air Intake Visit Reasons: 3 month BP Follow Up Allergies No Known Allergies Allergy (Verified 09/11/24 10:44) Medication List - Last Reconciled 09/11/24 by Alen Angelo MD allopurinol 300 mg PO DAILY hydrochlorothiazide 25 mg PO DAILY ibuprofen 600 mg PO TID metoprolol tartrate 50 mg PO BID 90 days selenium sulfide 2.5% 1 appl topical DAILY 7 days Tobacco use date assessed: 11/30/23 Dental Screening Dental Screen Date: 11/30/23 HPI 3 month BP Follow Up 2 HPI Details HTN on rx; doing well and compliant [facility] Medical History Morbid obesity Hypertension Surgical History History of hand surgery History of elbow surgery Deficient knowledge of leg surgery Family History Father Gout Diabetes Hypertension Mother Myocardial infarction Diabetes Hypertension CVD (cardiovascular disease) Mental health disorder Brother No problems noted. Sister No problems noted. Daughter No problems noted. 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 1. Little interest or pleasure in doing things: not at all 2. Feeling down, depressed, or hopeless: not at all 3. Trouble falling or staying asleep, or sleeping too much: not at all 4. Feeling tired or having little energy: not at all 5. Poor appetite or overeating: not at all 6. Feeling bad about yourself - or that you are a failure or have let yourself or your family down: not at all 7. Trouble concentrating on things, such as reading the newspaper or watching television: not at all 8. Moving or speaking so slowly that other people could have noticed. Or the opposite - being so fidgety or restless that you have been moving around a lot more than usual: not at all 9. Thoughts that you would be better off or of hurting yourself in some way: not at all Total score: 0 Depression Screening Interpretation: Negative Depression Screening Done: Yes 21685 - PHQ-9 Billing: Yes Source: Developed by Drs. Kristofer Bryant, Shanda Palacio, Antonio Escalante and colleagues, with an educational serafin from [employer]. Thrive Questionnaire Date Thrive assessed: 06/22/24 AUDIT C Alcohol Use Questionnaire (AUDIT-C) 1. How often do you have a drink containing alcohol?: Never Total Score: 0 Score Reviewed/Action Taken: Yes DEVORAH-7 AMB Questionnaire DEVORAH-7 Date DEVORAH - 7 assessed: 11/30/23 Source: Developed by Drs. Kristofer Bryant, Shanda Palacio, Antonio Escalante and colleagues, with an educational serafin from [employer]. Review of Systems Const Denies chills, Denies headache(s) and Denies weight loss ENT Denies headache(s) Card Denies chest pain, Denies syncope, Denies irregular heart rhythm and Denies dyspnea Resp Denies chest congestion, Denies cough and Denies dyspnea GI Denies abdominal pain, Denies change in stool character, Denies nausea and Denies vomiting Musc Denies deformity and Denies joint swelling Neuro Denies syncope and Denies headache(s) Physical exam (Primary Care) Vital Signs: Last Vital Signs Pulse 83 09/11/24 10:41 BP 132/88 09/11/24 10:41 Pulse Ox 98 09/11/24 10:41 Oxygen Delivery Method Room Air 09/11/24 10:41 BMI result Body Mass Index 49.0 Tobacco/Smoking Status: Tobacco use Status Tobacco use date assessed 11/30/23 09/11/24 10:47 Patient Tobacco Use Status Never used Tobacco 09/11/24 10:47 Tobacco use type Cigarette 09/11/24 10:47 e-Cigarette/Vaping Use Never Used 09/11/24 10:47 PHQ-9: PHQ-9 Score PHQ-9: Total score 0 09/11/24 10:47 Depression Screening Interpretation: Negative Thrive Assessment: Date of Thrive Assessment Date Thrive assessed 06/22/24 09/11/24 10:47 Const General: cooperative, comfortable, no acute distress and alert Neck Neck: Yes no lymphadenopathy Thyroid: Thyroid normal Resp Effort & Inspection: normal respiratory effort Auscultation: clear to auscultation bilaterally Percussion: percussion normal Cardio Jugular venous distension: no JVD Palpation: normal PMI Rate: regular rate Rhythm: regular rhythm Heart sounds: S1 normal heart sound present and S2 normal heart sound present GI Inspection: Yes normal to inspection Palpation (GI): No hepatosplenomegaly present Skin General skin exam: no rashes or lesions noted Extrem General: Yes no clubbing, cyanosis or edema Coding Level of Care Code Est Pt Level 3 (62794) Diagnoses Hypertension I10 Additional Codes PHQ-9 - 68234 - PHQ-9 Billing: Yes ([id number]) Assessment & Plan Assessment & Plan (1) Hypertension: Code(s): I10 - Essential (primary) hypertension Category: Medical Plan: stable; same rx Orders: Orders Lipid Panel Today Z13.220 - Encounter for screening for lipoid disorders Complete Blood Count Auto Diff Today Z13.0 - Encounter for screening for diseases of the blood and blood-forming organs and certain disorders involving the immune mechanism Comprehensive [place]. Panel Fast Today Z13.9 - Encounter for screening, unspecified Thyroid Stimulating Hormone Today Z13.29 - Encounter for screening for other suspected endocrine disorder
== END 2024-09-11 11:00 | disposition home or self-care (01) ==
PROVIDERS: PCP Internal Medicine; Visit Provider Internal Medicine
DX: I10 Essential (primary) hypertension (principal)

== ENCOUNTER → 2024-09-11 10:37 | Outpatient (BNVA) | payer OTHER, SELFPAY | PROVIDERS: PCP Internal Medicine; Visit Provider Internal Medicine | DX: I10 Essential (primary) hypertension (principal) | CPT/HCPCS: 96127 ==

== ENCOUNTER 2024-12-11 10:06 | Outpatient (REF) | payer MEDICAID, SELFPAY ==
[2024-12-11 10:20] LABS: MANUAL DIFF FLAG NO
[2024-12-11 10:38] LABS: Basophils Percent Auto 0.2 % (0-2); Eosinophils Absolute Auto 0.2 X10*3/uL (0.0-0.4); Eosinophils Percent Auto 1.9 % (0-4); Hematocrit 47.8 % (42.0-52.0); Hemoglobin 16.2 g/dl (14.0-18.0); Imm Gran Abs Auto 0.04 X10*3/uL (0.00-0.03); Imm Gran Pct Auto 0.4 % (0.0-0.4); Lymphocytes Percent Auto 29.6 % (20-40); Mean Corpuscular HGB Conc 33.9 g/dl (31.0-36.0); Mean Corpuscular Hemoglobin 29.3 pg (27.0-33.0); Mean Corpuscular Volume 86.4 fL (80.0-98.0); Mean Platelet Volume 9.5 fL (9.4-12.4); Monocytes Absolute Auto 0.6 X10*3/uL (0.1-1.2); Monocytes Percent Auto 5.7 % (2-11); Neutrophils Absolute Auto 6.2 x10*3/uL (2.0-8.3); Neutrophils Percent Auto 62.2 % (45-73); Platelet Count 325 X10*3/uL (160-400); Red Blood Count 5.53 X10*6/uL (4.60-5.80); Red Cell Distribution Width 12.8 % (11.0-16.0)
[2024-12-11 11:13] LABS: Alanine Aminotransferase 60 U/L (0-40); Albumin Level 4.1 g/dL (3.5-5.0); Alkaline Phosphatase 102 U/L (39-117); Anion Gap 13 (12-20); Aspartate Amino Transferase 46 U/L (5-37); Bilirubin Total 0.8 mg/dL (0.0-1.0); Blood Urea Nitrogen 14 mg/dL (9-16); Calcium 9.3 mg/dL (8.4-10.2); Carbon Dioxide 22 mmol/L (22-29); Chloride 108 mmol/L (96-108); Cholesterol 178 mg/dL (<200); Estimated Glomerular Filt Rate > 60; Glucose Fasting 102 mg/dL (60-99); HDL Cholesterol 28 mg/dL (>40); LDL Cholesterol Calculated 120 mg/dL (<100); Sodium 139 mmol/L (135-145); Total Protein 8.1 g/dL (6.5-8.0); Triglycerides 150 mg/dL (<150)
[2024-12-11 11:27] LABS: Thyroid Stimulating Hormone 1.48 uIU/mL (0.32-4.0)
== END 2024-12-11 10:07 | disposition home or self-care (01) ==
LOC: HO.LAB 10:06
PROVIDERS: PCP Internal Medicine; Visit Provider Internal Medicine
DX: Z13.0 Encounter for screening for diseases of the blood and blood-forming organs and certain disorders involving the immune mechanism (principal); Z13.220 Encounter for screening for lipoid disorders; Z13.29 Encounter for screening for other suspected endocrine disorder; Z13.9 Encounter for screening, unspecified
CPT/HCPCS: 36415; 80053; 80061; 84443; 85025

== ENCOUNTER 2024-12-12 11:37 | Outpatient (AMB) | payer MEDICAID, SELFPAY ==
--- NOTE | 2024-12-12 11:38 | MHC.PC.OV ---
Vital Signs 12/12/24 11:40 Height 5 ft 8 in Weight 326 lb BMI 49.6 BP 126/78 Blood Pressure Location Lt brachial Position Sitting Pulse 82 Pulse Source Pulse Oximeter Temp 96.9 F Temp Source Temporal Artery Scan Pulse Oximetry (%) 96 Oxygen Delivery Method Room Air Intake Visit Reasons: 3 month f/u Intake Note: Patient is here to follow up on HTN. 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 Required: No Rate Manager: Not Required per policy Accompanied by: Self / Same As Patient Allergies No Known Allergies Allergy (Verified 12/12/24 11:39) Medication List - Last Reconciled 12/12/24 by Alen Angelo MD allopurinol 300 mg PO DAILY hydrochlorothiazide 25 mg PO DAILY ibuprofen 600 mg PO TID metoprolol tartrate 50 mg PO BID 90 days selenium sulfide 2.5% 1 appl topical DAILY 7 days Tobacco use date assessed: 12/12/24 Dental Screening Dental Screen Date: 12/12/24 Did you have a dental visit in the last 12 months?: No Did you have a dental problem in the last 6 months where you did not have access to dental care?: No Was dental information given to patient?: Patient has dentist HPI 3 month f/u HPI Details HTN on Rx; doing well and compliant [facility] Medical History Morbid obesity Hypertension Surgical History History of hand surgery History of elbow surgery Deficient knowledge of leg surgery Family History Father Gout Diabetes Hypertension Mother Myocardial infarction Diabetes Hypertension CVD (cardiovascular disease) Mental health disorder Brother No problems noted. Sister No problems noted. Daughter No problems noted. 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 1. Little interest or pleasure in doing things: not at all 2. Feeling down, depressed, or hopeless: not at all 3. Trouble falling or staying asleep, or sleeping too much: not at all 4. Feeling tired or having little energy: not at all 5. Poor appetite or overeating: not at all 6. Feeling bad about yourself - or that you are a failure or have let yourself or your family down: not at all 7. Trouble concentrating on things, such as reading the newspaper or watching television: not at all 8. Moving or speaking so slowly that other people could have noticed. Or the opposite - being so fidgety or restless that you have been moving around a lot more than usual: not at all 9. Thoughts that you would be better off or of hurting yourself in some way: not at all Total score: 0 Depression Screening Interpretation: Negative Depression Screening Done: Yes Source: Developed by Drs. Kristofer Bryant, Shanda Palacio, Antonio Escalante and colleagues, with an educational serafin from [employer]. Thrive Questionnaire Date Thrive assessed: 12/12/24 I am a: Patient What is your living situation today?: I have a steady place to live Within the past 12 months, did the food you bought not last and you didn't have the money to get more?: Never true Within the past 12 months, did you worry whether your food would run out before you got money to buy more?: Never true Do you have trouble paying for medicines?: No Do you have trouble getting transportation to medical appointments?: No Do you have trouble paying your heating and electricity bill?: No Do you have trouble taking care of your child, family member or friend?: No Do you have trouble with day-to-day activities such as bathing, preparing meals, shopping, managing finances, etc.?: No Are you currently unemployed and looking for a job?: No Are you interested in more education?: No Please select the resources that you would like help with: None Currently or been in a relationship where the following occur: No concerns reported THRIVE Score: 0 AUDIT C Alcohol Use Questionnaire (AUDIT-C) 1. How often do you have a drink containing alcohol?: Never Total Score: 0 DEVORAH-7 AMB Questionnaire DEVORAH-7 Date DEVORAH - 7 assessed: 12/12/24 Feeling nervous, anxious, or on edge: 0 = Not at all Not being able to stop or control worryin = Not at all Worrying too much about different things: 0 = Not at all Trouble relaxin = Not at all Being so restless that it is hard to sit still: 0 = Not at all Becoming easily annoyed or irritable: 0 = Not at all Feeling afraid as if something awful might happen: 0 = Not at all Total DEVORAH-7 score (0-4 normal; 5-9 mild; 10-14 moderate; 15-21 severe): 0 Source: Developed by Drs. Kristofer Bryant, Shanda Palacio, Antonio Escalante and colleagues, with an educational serafin from [employer]. Review of Systems Const Denies chills, Denies headache(s) and Denies weight loss ENT Denies headache(s) Card Denies chest pain, Denies syncope, Denies irregular heart rhythm and Denies dyspnea Resp Denies chest congestion, Denies cough and Denies dyspnea GI Denies abdominal pain, Denies change in stool character, Denies nausea and Denies vomiting Musc Denies deformity and Denies joint swelling Neuro Denies syncope and Denies headache(s) Physical exam (Primary Care) Vital Signs: Last Vital Signs Temp 96.9 F 12/12/24 11:40 Pulse 82 12/12/24 11:40 BP 126/78 12/12/24 11:40 Pulse Ox 96 12/12/24 11:40 Oxygen Delivery Method Room Air 12/12/24 11:40 BMI result Body Mass Index 49.6 Tobacco/Smoking Status: Tobacco use Status Tobacco use date assessed 12/12/24 12/12/24 11:44 Patient Tobacco Use Status Never used Tobacco 12/12/24 11:44 Tobacco use type Cigarette 12/12/24 11:44 e-Cigarette/Vaping Use Never Used 12/12/24 11:44 PHQ-9: PHQ-9 Score PHQ-9: Total score 0 12/12/24 11:44 Depression Screening Interpretation: Negative Thrive Assessment: Date of Thrive Assessment Date Thrive assessed 12/12/24 12/12/24 11:44 Currently or been in a relationship where the following occur: No concerns reported Const General: cooperative, comfortable, no acute distress and alert Neck Neck: Yes no lymphadenopathy Thyroid: Thyroid normal Resp Effort & Inspection: normal respiratory effort Auscultation: clear to auscultation bilaterally Percussion: percussion normal Cardio Jugular venous distension: no JVD Palpation: normal PMI Rate: regular rate Rhythm: regular rhythm Heart sounds: S1 normal heart sound present and S2 normal heart sound present GI Inspection: Yes normal to inspection Palpation (GI): No hepatosplenomegaly present Skin General skin exam: no rashes or lesions noted Extrem General: Yes no clubbing, cyanosis or edema Coding Level of Care Code Est Pt Level 3 (92075) Diagnoses Hypertension I10 Assessment & Plan Assessment & Plan (1) Hypertension: Code(s): I10 - Essential (primary) hypertension Category: Medical Plan: stable; same rx; add Ozempic for weight loss Medications: New semaglutide for 4 weeks 0.25 mg (0.187 mL) subcut QWEEK 1.5 mL 0RF Refilled selenium sulfide 2.5% 1 appl topical DAILY 7 days 120 mL 0RF
[2024-12-12 11:40] VITALS: BP 126/78; PULSE 82; TEMP 36.1; O2SAT 96; BMI 49.6
== END 2024-12-12 11:59 | disposition home or self-care (01) ==
PROVIDERS: PCP Internal Medicine; Visit Provider Internal Medicine
DX: I10 Essential (primary) hypertension (principal)

== ENCOUNTER → 2024-12-12 11:37 | Outpatient (BNVA) | payer MEDICAID, SELFPAY | PROVIDERS: PCP Internal Medicine; Visit Provider Internal Medicine | DX: I10 Essential (primary) hypertension (principal) | CPT/HCPCS: 99212 ==

== ENCOUNTER 2024-12-18 07:17 | Outpatient (REF) | payer MEDICAID, SELFPAY | END 2024-12-18 07:18 | disposition home or self-care (01) | LOC: HO.HOSX 07:17 | PROVIDERS: Visit Provider Orthopaedic Surgery | DX: Z13.89 Encounter for screening for other disorder (principal) ==

== ENCOUNTER 2025-01-18 08:40 | Outpatient (REF) | payer MEDICAID, SELFPAY | END 2025-01-18 08:41 | disposition home or self-care (01) | LOC: HO.HOSX 08:40 | PROVIDERS: Visit Provider Orthopaedic Surgery | DX: Z13.89 Encounter for screening for other disorder (principal) ==

== ENCOUNTER 2025-06-21 13:29 | Outpatient (AMB) | payer OTHER, SELFPAY ==
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
[2025-06-21 13:34] VITALS: BP 132/84; PULSE 84; TEMP 36.2; O2SAT 97; BMI 49.3
== END 2025-06-21 14:16 | disposition home or self-care (01) ==
LOC: HO.HMCH 13:30
PROVIDERS: PCP Internal Medicine; Visit Provider Internal Medicine
DX: Z00.00 Encounter for general adult medical examination without abnormal findings (principal); I10 Essential (primary) hypertension; E66.01 Morbid (severe) obesity due to excess calories; Z68.42 Body mass index [BMI] 45.0-49.9, adult; E78.2 Mixed hyperlipidemia; R79.89 Other specified abnormal findings of blood chemistry; M10.00 Idiopathic gout, unspecified site; F41.9 Anxiety disorder, unspecified

== ENCOUNTER → 2025-06-21 13:29 | Outpatient (BNVA) | payer OTHER, SELFPAY | PROVIDERS: PCP Internal Medicine; Visit Provider Internal Medicine | DX: Z00.00 Encounter for general adult medical examination without abnormal findings (principal); I10 Essential (primary) hypertension; E78.2 Mixed hyperlipidemia; R79.89 Other specified abnormal findings of blood chemistry; M10.00 Idiopathic gout, unspecified site; F41.9 Anxiety disorder, unspecified; E66.01 Morbid (severe) obesity due to excess calories; Z68.42 Body mass index [BMI] 45.0-49.9, adult | CPT/HCPCS: 96127; 99395 ==

== ENCOUNTER → 2025-07-30 10:48 | Outpatient (BNVA) | payer SELFPAY | PROVIDERS: PCP Internal Medicine; Visit Provider Physician Assistant Medical | DX: Z02.79 Encounter for issue of other medical certificate (principal) ==